=== PATIENT | male | born 1960 | race Hispanic/Latino ===

== ENCOUNTER 2018-04-29 22:27 | Emergency (ER) | payer BC ==
[2018-04-30 00:16] LABS: BASO # 0.1 K/uL (0.0-0.2); BASO % 0.7 % (0.0-2.0); EOS # 0.3 K/uL (0.0-0.7); EOS % 2.8 % (0.0-4.0); HEMOGLOBIN 10.7 g/dL (12.0-18.0); LYMPH # 2.2 K/uL (1.0-4.3); LYMPH % 22.6 % (20.0-40.0); MEAN CELL VOLUME 89.5 fl (80.0-94.0); MEAN CORPUSCULAR HEMOGLOBIN 29.8 pg (27.0-31.0); MEAN CORPUSCULAR HGB CONC 33.2 g/dL (33.0-37.0); MEAN PLATELET VOLUME 9.3 fl (7.2-11.7); MONO # 0.9 K/uL (0.0-0.8); MONO % 8.8 % (0.0-10.0); NEUT # 6.4 K/uL (1.8-7.0); NEUT % 65.1 % (50.0-75.0); RBC 3.6 Mil/uL (4.40-5.90); RED CELL DISTRIBUTION WIDTH 14.5 % (11.5-14.5); WHITE BLOOD COUNT 9.8 K/uL (4.8-10.8)
[2018-04-30 00:25] LABS: CALCIUM 9.6 mg/dL (8.4-10.2)
--- NOTE | 2018-04-30 00:32 | ED PDOC ---
HPI: General Adult Time Seen by Provider: 04/29/18 22:47 Chief Complaint (Nursing): Abnormal Labs Chief Complaint (Provider): Abnormal Labs History Per: Patient History/Exam Limitations: no limitations Current Symptoms Are (Timing): Still Present Additional Complaint(s): 58 year old male referred to ED by his advanced nursing professor for an evaluation of elevated potassium at 7MMOL/L seen on recent routine lab results. Patient denies any fever, chills, weakness, or further medical complaints. Cardio: Dr. Trenton Longoria Past Medical History Reviewed: Historical Data, Nursing Documentation, Vital Signs Vital Signs: Last Vital Signs Temp 98.4 F 04/29/18 22:39 Pulse 76 04/29/18 22:39 Resp 16 04/29/18 22:39 BP 150/81 04/29/18 22:39 Pulse Ox 97 04/29/18 22:39 - Medical History PMH: Diabetes, HTN - Surgical History Surgical History: No Surg Hx - Family History Family History: States: Unknown Family Hx - Social History Current smoker - smoking cessation education provided: No Alcohol: None Drugs: Denies - Allergies Allergies/Adverse Reactions: Allergies Allergy/AdvReac Type Severity Reaction Status Date / Time No Known Allergies Allergy Verified 04/29/18 22:41 Review of Systems ROS Statement: Except As Marked, All Systems Reviewed And Found Negative Constitutional: Negative for: Fever, Chills Neurological: Negative for: Weakness Physical Exam - Reviewed Nursing Documentation Reviewed: Yes Vital Signs Reviewed: Yes - Physical Exam Appears: Positive for: Well, Non-toxic, No Acute Distress Head Exam: Positive for: ATRAUMATIC, NORMAL INSPECTION, NORMOCEPHALIC Skin: Positive for: Normal Color Eye Exam: Positive for: Normal appearance ENT: Positive for: Normal ENT Inspection Neck: Positive for: Normal Cardiovascular/Chest: Positive for: Regular Rate, Rhythm Respiratory: Positive for: Normal Breath Sounds. Negative for: Respiratory Distress Gastrointestinal/Abdominal: Positive for: Normal Exam, Soft, Other (obese). Negative for: Tenderness Extremity: Positive for: Normal ROM (upper/lower) Neurologic/Psych: Positive for: Alert, Oriented. Negative for: Motor/Sensory Deficits - Laboratory Results Result Diagrams: 04/29/18 23:55 04/29/18 23:55 - ECG O2 Sat by Pulse Oximetry: 97 (RA) Pulse Ox Interpretation: Normal Medical Decision Making Medical Decision Making: Initial Impression: 58 year old male with asymptomatic hyperkalemia. Initial Plan: * EKG * Labs * Accucheck Time: 0045 --Accucheck: 144. Labs reviewed: mild elevated ppotassium at 5.8 MMOL/L. No changes in EKGs. Patient is medically stable and continues to report feeling well. 1 does of Albuterol given in ED. Advised patient to follow up with Dr. Longoria. There is agreement to discharge plan. Return if symptoms persist or worsen. Clinical Impression: Hyperkalemia Scribe Attestation: Documented by Ashlyn Flores, acting as a scribe for Theodore Villasenor MD. Provider Scribe Attestation: All medical record entries made by the Scribe were at my direction and personally dictated by me. I have reviewed the chart and agree that the record accurately reflects my personal performance of the history, physical exam, medical decision making, and the department course for this patient. I have also personally directed, reviewed, and agree with the discharge instructions and disposition. Disposition - Clinical Impression Clinical Impression: Hyperkalemia - Patient ED Disposition Is Patient to be Admitted: No Counseled Patient/Family Regarding: Studies Performed, Diagnosis, Need For Followup - Disposition Disposition: Routine/Home Disposition Time: 00:45 Condition: STABLE Instructions: Hyperkalemia Forms: [employer] ([employer])
[2018-04-30] MEDS ORDERED: Sod Polystyrene Sulf 15 gm/60 ml Susp PO STA (00:37)
[2018-04-30] MEDS ORDERED: Albuterol 0.083% Inhal Sol (2.5 mg/3 mL) UD INH STA (00:45)
[2018-04-30] MEDS ORDERED: Sod Polystyrene Sulf 15 gm/60 ml Susp ONE (01:00)
[2018-04-30] MEDS ORDERED: Albuterol 0.083% Inhal Sol (2.5 mg/3 mL) UD ONE (01:01)
[2018-04-30 01:49] VITALS: BP 126/58; PULSE 83; RESP 16; TEMP 98.1; O2SAT 96
--- NOTE | 2018-04-30 12:25 | CARD ---
APPROVED REPORT Date of service: 04/29/2018 EKG Measurement Heart [id number] <Conclusion> Normal sinus rhythm Normal ECG
== END 2018-04-30 01:42 | disposition home or self-care (01) ==
LOC: H.ER 22:27
DX: E87.5 Hyperkalemia (principal); E11.9 Type 2 diabetes mellitus without complications; I10 Essential (primary) hypertension